=== PATIENT | male | born 1930 | race Caucasian/White ===

== ENCOUNTER 2016-06-19 03:37 | Emergency (ER) | payer OTHER ==
--- NOTE | 2016-06-19 03:42 | PDOC ---
History of Present Illness - General History Source: Patient, Old Records - History of Present Illness Initial Comments: 06/19/16 04:06 The patient is an 86 year old female with a significant past medical history of HTN, HLD, diverticulitis, gallbladder stones, stents x2 2009 who is arrived to the Emergency Department via EMS with complaints of chest pain since few hours ago. Pt states that he started to experience a sharp chest pain on his way to bed tonight. As per EMS, pt was given 2 Nitrile and 4 Aspirin in the ambulance. He denies fever, chills, cough, SOB, abdominal pain, nausea, vomiting, diarrhea , headache, dizziness. PSH:total hip replacement ALL: penicillins, gluten PCP: Dr. Gary Craven Nurse Practitioner: Dr. 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 2009) Cholecystectomy: No Lung Surgery: No Neurologic Surgery: No Orthopedic Surgery: No - Immunization History Immunization Up to Date: Yes - Psycho/Social/Smoking Cessation Hx Anxiety: No Suicidal Ideation: No Smoking Status: No Smoking History: Never smoked Have you smoked in the past 12 months: No Number of Cigarettes Smoked Daily: 0 Hx Alcohol Use: No Drug/Substance Use Hx: No Substance Use Type: None Hx Substance Use Treatment: No <Bebe Nascimento - Last Filed: 06/19/16 06:42> - Past Medical History Allergies/Adverse Reactions: Allergies Allergy/AdvReac Type Severity Reaction Status Date / Time Penicillins Allergy Severe anaphylaxis Verified 06/19/16 03:48 gluten AdvReac Intermediate CELIAC Verified 06/19/16 03:48 Home Medications: Ambulatory Orders Clonazepam [Klonopin -] 1 mg PO TID 08/11/15 Acetaminophen [Tylenol .Regular Strength -] 650 mg PO Q6H PRN #0 tablet Aspirin Coated [Ecotrin -] 81 mg PO DAILY #0 tablet.ec 02/29/16 Atorvastatin Ca [Lipitor] 10 mg PO HS #0 tablet 02/29/16 Nitroglycerin Sublingual [Nitrostat -] 0.4 mg SL Q5M PRN #0 tab 02/29/16 Amlodipine Besylate [Norvasc -] 2.5 mg PO DAILY 06/19/16 Citalopram Hydrobromide [Celexa -] 20 mg PO DAILY 06/19/16 Meclizine HCl [Antivert -] 12.5 mg PO BID PRN 06/19/16 Valsartan [Diovan] 160 mg PO DAILY 06/19/16 Review of Systems - Review of Systems Able to Perform ROS?: Yes Comments:: 06/19/16 04:10 GENERAL/CONSTITUTIONAL: No: fever, chills, weakness, loss of appetite. HEAD, EYES, EARS, NOSE AND THROAT: No: change in vision, ear pain, discharge, sore throat, throat swelling. CARDIOVASCULAR:Yes: chest pain No: lightheadedness, palpitations, syncope RESPIRATORY: No: cough, shortness of breath, wheezing, hemoptysis, stridor. GASTROINTESTINAL: No: nausea, vomiting, abdominal cramping, diarrhea, rectal bleeding, constipation. GENITOURINARY: No: dysuria, hematuria, frequency, urgency, flank pain. MUSCULOSKELETAL: No: back pain, neck pain, joint pain, muscle swelling or pain SKIN AND BREASTS: No: lesions, pallor, rash or easy bruising. NEUROLOGIC: No: headache, vertigo, paresthesias, weakness ENDOCRINE: No: unexplained weight gain or loss HEMATOLOGIC/LYMPHATIC: No: anemia, easy bleeding, swelling nodes All Other Systems: Reviewed and Negative <Yecenia Boyer - Last Filed: 06/19/16 04:36> *Physical Exam - Vital Signs Last Vital Signs Temp Pulse Resp BP Pulse Ox 97.8 F 80 18 124/83 99 06/19/16 03:45 06/19/16 03:52 06/19/16 03:52 06/19/16 03:52 06/19/16 03:52 - Physical Exam Comments: 06/19/16 04:11 GENERAL: The patient is in no acute distress. HEAD: Normal with no signs of trauma. EYES: PERRLA, EOMI, sclera anicteric, conjunctiva clear. ENT: Ears normal, nares patent, oropharynx clear without exudates. Moist mucous membranes. NECK: Normal range of motion, supple without lymphadenopathy, JVD, or masses. LUNGS: Breath sounds equal, clear to auscultation bilaterally. No wheezes, and no crackles. HEART:Regular rate and rhythm, normal S1 and S2 without murmur, rub or gallop. ABDOMEN: Soft, nontender, normoactive bowel sounds. No guarding, no rebound. EXTREMITIES:+bilateral lower extremities pitting edema. Normal range of motion. No clubbing or cyanosis. No erythema, or tenderness. NEUROLOGICAL: Cranial nerves II through XII grossly intact. Normal speech. No focal neurological deficits. MUSCULOSKELETAL: Back non-tender to palpation, no CVA tenderness SKIN: Warm, Dry, normal turgor, no rashes or lesions noted. <Yecenia Boyer - Last Filed: 06/19/16 04:36> ED Treatment Course - LABORATORY CBC & Chemistry Diagram: 06/19/16 04:15 06/19/16 04:15 <Yecenia Boyer - Last Filed: 06/19/16 04:36> - LABORATORY CBC & Chemistry Diagram: 06/19/16 04:15 06/19/16 04:50 <Bebe Nascimento - Last Filed: 06/19/16 06:42> Medical Decision Making - Medical Decision Making 06/19/16 06:38 Pt comes with chest pain that is muscular, as he twisted forcefully when he lost his balance while attempting to get on his bed. He twisted himself in an effort not to slip, and he got a spasm in the middle of his chest. No SOB and no other complaints. He called 911, who brought him to the hospital. His EKG is unchanged. He has normal labs/cardiac enzymes and his exam is normal. He was treated with NSAIDs and benadryl for it's muscle relaxin properties. He is feeling better and he will be discharged. He understands that he should return if he feels worse or if the pain doesn't remit. <Bebe Nascimento - Last Filed: 06/19/16 06:42> *DC/Admit/Observation/Transfer - Attestations Scribe Attestion: 06/19/16 04:12 Documentation prepared by Yecenia Boyer, acting as medical lab assistant for Bebe Nascimento MD. <Yecenia Boyer - Last Filed: 06/19/16 04:36> - Discharge Dispostion Admit: No <Bebe Nascimento - Last Filed: 06/19/16 06:42> Diagnosis at time of Disposition: Muscular chest pain - Discharge Dispostion Disposition: HOME Condition at time of disposition: Stable - Referrals Referrals: Gary Chandler [Primary Care Provider] - - Patient Instructions Printed Discharge Instructions: DI for Atypical Chest Pain, DI for Muscle Strain
[2016-06-19 03:48] VITALS: TEMP 97.8; BMI 30.1
[2016-06-19] MEDS ORDERED: KETOROLAC TROMETHAMINE 30 MG/1 ML VIAL IVPUSH ONE (03:59)
[2016-06-19] MEDS ORDERED: KETOROLAC TROMETHAMINE 30 MG/1 ML VIAL ONE (04:21)
[2016-06-19 04:26] LABS: BASOPHIL 2.3 % (0-2.0); EOSINOPHIL 5.1 % (0-4.5); MCH 30.5 pg (25.7-33.7); MCHC 33.8 g/dl (32.0-35.9); MEAN CELL VOLUME 90.1 fl (80-96); MEAN PLT VOLUME 6.8 fl (7.5-11.1); NEUTROPHILS 65.3 % (42.8-82.8); PLATELET COUNT 169 K/MM3 (134-434); RDW 13.8 % (11.9-15.9); WHITE BLOOD COUNT 4.5 K/mm3 (4.0-10.0)
[2016-06-19 04:37] LABS: INR 1.05 (0.82-1.09); PROTHROMBIN TIME (PATIENT) 11.6 SEC (9.98-11.88)
[2016-06-19 05:36] LABS: ALBUMIN 3.3 g/dl (3.4-5.0); ALK PHOS 109 U/L (45-117); ANION GAP 8 (8-16); BILIRUBIN,TOTAL 0.9 mg/dL (0.2-1.0); CALCIUM 7.5 mg/dL (8.5-10.1); CO2 28 mmol/L (21-32); GLUCOSE,RANDOM 81 mg/dL (74-106); SGOT/AST 21 U/L (15-37); SGPT/ALT 25 U/L (12-78); TOT PROT 6.3 g/dl (6.4-8.2); TROPONIN I < 0.02 ng/ml (0.00-0.05)
[2016-06-19 06:01] VITALS: BP 160/80; PULSE 68
--- NOTE | 2016-06-19 23:24 | EKG ---
Test Reason : Blood Pressure : / mmHG Vent. Rate : 076 BPM Atrial Rate : 076 BPM P-R Int : 172 ms QRS Dur : 156 ms QT Int : 452 ms P-R-T Axes : 069 -69 -03 degrees QTc Int : 508 ms NORMAL SINUS RHYTHM RIGHT BUNDLE BRANCH BLOCK LEFT ANTERIOR FASCICULAR BLOCK BIFASCICULAR BLOCK MINIMAL VOLTAGE CRITERIA FOR LVH, MAY BE NORMAL VARIANT SEPTAL INFARCT , AGE UNDETERMINED ABNORMAL ECG WHEN COMPARED WITH ECG OF 28-FEB-2016 09:49, T WAVE VARIATION Confirmed by SHERIDAN MUNIZ MD ([id number]) on 06/19/2016 11:23:43 PM Referred By: Confirmed By:SHERIDAN MUNIZ MD
== END 2016-06-19 06:06 | disposition home or self-care (01) ==
LOC: JER 03:37
PROC: 3E0333Z Introduction of Anti-inflammatory into Peripheral Vein, Percutaneous Approach (ICD-10-PCS; principal; 2016-06-19)
PROC: 3E033GC Introduction of Other Therapeutic Substance into Peripheral Vein, Percutaneous Approach (ICD-10-PCS; 2016-06-19)
DX: R07.89 Other chest pain (principal); I10 Essential (primary) hypertension; E78.00 Pure hypercholesterolemia, unspecified; Z95.5 Presence of coronary angioplasty implant and graft
CPT/HCPCS: 36415; 80053; 82550; 84484; 85025; 85610; 93005; 93010; 96374; 96375; 99282-25

== ENCOUNTER 2017-01-20 05:04 | Day surgery (SDC) | payer OTHER ==
[2017-01-19 07:10] VITALS: BMI 33.3
[2017-01-20] MEDS ORDERED: LIDOCAINE HCL 1%, 10 MG/ML (20ML VIAL) ONE (14:41)
--- NOTE | 2017-01-20 15:05 | HP ---
History & Physical Update - History History: No Change - Physical Physical: No Change - Assessment Assessment: No Change - Plan Plan: No Change
[2017-01-20] MEDS ORDERED: ACETAMINOPHEN 1000 MG/100 ML VIAL (NON FORMULARY) IVPB ONE (15:06)
[2017-01-20] MEDS ORDERED: IBUPROFEN 800 MG/8 ML IJ IVPB PRN (15:06)
[2017-01-20] MEDS ORDERED: DEXTROSE 5%-0.45% SALINE 1,000 ML IV SCH (15:15)
[2017-01-20] MEDS ORDERED: LEVOFLOXACIN 500 MG IVPB 100 ML IVPB ONE (15:17)
[2017-01-20] MEDS ORDERED: LEVOFLOXACIN 500 MG PREMIX BAG IVPB ONE (15:18)
[2017-01-20] MEDS ORDERED: MIDAZOLAM HCL 2 MG/2 ML SINGLE DOSE VIAL ONE (15:20)
[2017-01-20] MEDS ORDERED: LIDOCAINE HCL 1%, 10 MG/ML (20ML VIAL) IJ ONE (15:24)
[2017-01-20] MEDS ORDERED: oxyCODONE HCL 5 MG TABLET PO PRN (16:10)
[2017-01-20] MEDS ORDERED: PROMETHAZINE HCL 25 MG/1 ML VIAL IVPUSH PRN (16:10)
[2017-01-20] MEDS ORDERED: ONDANSETRON 4 MG/2 ML VIAL IVPUSH PRN (16:10)
[2017-01-20] MEDS ORDERED: LABETALOL HCL 5 MG/1 ML (100MG/20 ML VIAL) IVPUSH ONE (16:12)
[2017-01-20 17:26] VITALS: TEMP 98
[2017-01-20 19:03] VITALS: BP 137/78; PULSE 73
--- NOTE | 2017-01-21 08:05 | OP ---
DATE OF OPERATION: 01/20/2017 PREOPERATIVE DIAGNOSIS: Urinary urge incontinence. POSTOPERATIVE DIAGNOSIS: Urinary urge incontinence. PROCEDURE: InterStim implant, battery and lead on the left. SURGEON: Marcello Burns MD ANESTHESIA: Aline Chew MD PREOPERATIVE INDICATIONS: The patient is an 86-year-old male with severe urinary urge incontinence. He has failed multiple medications. He had a percutaneous nerve evaluation test done which showed a greater than 50% improvement in his urge incontinence. He elects for InterStim implant. DESCRIPTION OF OPERATION: Patient is brought to the OR, placed on the table in the prone position. All pressure points were protected. IV antibiotics and IV sedation were given. The back was prepped and draped sterilely. Timeout was performed. Using fluoroscopy, the S3 foramen identified bilaterally. Finder needles were passed into the S3 foramen bilaterally after the skin was infused with lidocaine. On the left side, the best response was seen with viviana and toe deflection at low amplitude. A wire guide was then placed through the needle. The tract was dilated, and a quadripolar lead was passed into the S3 foramen under fluoroscopic guidance. It was retested with good response at all leads. This lead was then tunneled underneath the skin to the left side where a battery pocket was made. This was connected to the battery. The battery was placed into the pocket. Wounds were closed in 2 layers using 3-0 Vicryl and 4-0 Monocryl. Wounds were dressed. Patient was woken up. [place] [id number]
== END 2017-01-20 18:30 | disposition home or self-care (01) ==
LOC: JASU-SURG 05:04
PROVIDERS: ATTEND Urology
PROC: 01HY0MZ Insertion of Neurostimulator Lead into Peripheral Nerve, Open Approach (ICD-10-PCS; 2017-01-20)
PROC: 0JH70BZ Insertion of Single Array Stimulator Generator into Back Subcutaneous Tissue and Fascia, Open Approach (ICD-10-PCS; principal; 2017-01-20 14:30)
DX: N39.41 Urge incontinence (principal)
CPT/HCPCS: 64581; 64590; C1767; C1778; 76000-TC; 94760

== ENCOUNTER 2017-02-22 09:30 | Day surgery (SDC) | payer OTHER ==
[2017-02-21 12:24] VITALS: BMI 33.3
[2017-02-22] MEDS ORDERED: LIDOCAINE HCL 1%, 10 MG/ML (20ML VIAL) INF ONE (11:08)
[2017-02-22] MEDS ORDERED: IBUPROFEN 800 MG/8 ML IJ IVPB PRN (12:17)
--- NOTE | 2017-02-22 12:17 | HP ---
History & Physical Update - History History: No Change - Physical Physical: No Change - Assessment Assessment: No Change - Plan Plan: No Change
[2017-02-22] MEDS ORDERED: ACETAMINOPHEN 1000 MG/100 ML VIAL (NON FORMULARY) IVPB ONE ×2 (12:18→14:20)
[2017-02-22] MEDS ORDERED: DEXTROSE 5%-0.45% SALINE 1,000 ML IV SCH (12:30)
[2017-02-22] MEDS ORDERED: MIDAZOLAM HCL 2 MG/2 ML SINGLE DOSE VIAL ONE (12:52)
[2017-02-22] MEDS ORDERED: PROPOFOL 20 ML ONE ×2 (12:52→13:50)
[2017-02-22] MEDS ORDERED: LEVOFLOXACIN 500 MG PREMIX BAG IVPB ONE (12:55)
[2017-02-22] MEDS ORDERED: LIDOCAINE HCL 1%, 10 MG/ML (20ML VIAL) ONE (12:58)
[2017-02-22] MEDS ORDERED: ACETAMINOPHEN INJECTION 100 ML IVPB ONE (14:36)
--- NOTE | 2017-02-22 15:36 | OP ---
DATE OF OPERATION: 02/22/2017 PREOPERATIVE DIAGNOSIS: Urge urinary incontinence. POSTOPERATIVE DIAGNOSIS: Urge urinary incontinence. PROCEDURE: Battery and lead replacement of InterStim. SURGEON: Marcello Burns MD ESTIMATED BLOOD LOSS: Minimal. PREOPERATIVE INDICATION: The patient is an 86-year-old male with a history of bad urgency, frequency and urinary incontinence. He had an InterStim placed recently. However, the lead has migrated and the battery site was very painful to him. He comes to the OR for replacement of the device. OPERATION: The patient was brought to the OR and placed on the table in prone position. All pressure points were protected. He was given IV sedation, local anesthesia, and IV antibiotics. Incision was made paramedian to the sacrum. The lead was identified and removed in total. The old battery site was also reopened and the battery was removed. Incisions were irrigated with bacitracin and water. The foramen were identified on the right and left side using fluoroscopy and wires were passed down on each side of the S3 foramen. Superior stimulation occurred on the left side with appropriate S3 response at low amplitude. The quadripolar lead was placed under Seldinger technique using fluoroscopy and then this was tunneled separately to the previous battery site. A new pocket was then made that would better hold the battery in place, as previously the battery had migrated and changed its angle causing a lot of pain. Once the new battery was placed in the new pocket, the pocket was reinforced and then closed with 3-0 Vicryl. Separately, the entire pocket was closed with 3-0 Vicryl and 4-0 Monocryl. The sutures were similarly closed in two layers. The wounds were dressed. The patient was woken up. The patient's impedance was normal. [place] [id number]
[2017-02-22 15:51] VITALS: TEMP 97.6
[2017-02-22] MEDS ORDERED: ONDANSETRON 4 MG/2 ML VIAL IVPUSH PRN (18:04)
[2017-02-22] MEDS ORDERED: LACTATED RINGERS SOLUTION 1,000 ML IV SCH (18:15)
[2017-02-22 18:54] VITALS: BP 149/77; PULSE 63
--- NOTE | 2017-02-24 13:36 | PATH ---
Surgical Pathology Report Patient Name: CONSUELO LOUIE Med. Rec. #: [id number] /Age/Gender: 1930 (Age: 86) / M Account: [id number] Location: [facility] SURGICAL Taken: 02/22/2017 Received: 02/23/2017 Reported: 02/24/2017 Physicians: Marcello Burns M.D. Specimen(s) Received LEAD AND BATTERY REMOVED Clinical History Urge incontinence Final Diagnosis INTERSTIM LEAD AND BATTERY, REMOVAL: INTERIOR DESIGN CONSULTANT (GROSS EXAM). Electronically Signed Dannie Sebastian M.D. Gross Description Received dry labeled "removed lead and battery InterStim" and is a 5.0 x 4.4 x 0.8 cm metallic and plastic medical equipment sales designated [employer] InterStim 2. Also present is a 24 cm long x 0.1 cm in diameter portion of metallic wire with plastic coating. This is for gross identification only. [facility]/02/23/2017 [facility]/02/23/2017
== END 2017-02-22 17:00 | disposition home or self-care (01) ==
LOC: JASU-SURG 09:30
PROVIDERS: ATTEND Urology
PROC: 01HY0MZ Insertion of Neurostimulator Lead into Peripheral Nerve, Open Approach (ICD-10-PCS; 2017-02-22)
PROC: 0JH70BZ Insertion of Single Array Stimulator Generator into Back Subcutaneous Tissue and Fascia, Open Approach (ICD-10-PCS; principal; 2017-02-22 11:30)
DX: N39.41 Urge incontinence (principal); R35.0 Frequency of micturition
CPT/HCPCS: 64581; 64590; C1767; C1778; 76000-TC; 88300-TC; 94760

== ENCOUNTER 2017-07-17 19:47 | Emergency (ER) | payer OTHER ==
--- NOTE | 2017-07-17 20:08 | PDOC ---
Rapid Medical Evaluation Time Seen by Provider: 07/17/17 20:04 Medical Evaluation: Allergies Allergy/AdvReac Type Severity Reaction Status Date / Time Penicillins Allergy Severe anaphylaxis Verified 02/21/17 12:29 gluten AdvReac Intermediate CELIAC Verified 02/21/17 12:29 07/17/17 20:04 I have performed a brief in-person evaluation of this patient. The patient presents with a chief complaint of: hx of fractured foot, tripped on boot and fell , hit left side of head "really hard", left shoulder pain, dizzy since he fell down, denies LOC/N/V, denies neck pain, family denies AMS, change in speech, PCP Jack Pertinent physical exam findings: well appearing, no focal neuro deficits I have ordered the following: labs, head CT, shoulder x-ray, ekg The patient will proceed to the ED for further evaluation. Discharge Disposition - Diagnosis Fall - Referrals - Patient Instructions - Post Discharge Activity
[2017-07-17 20:14] VITALS: BP 152/72; PULSE 68; TEMP 97.4; BMI 30.7
[2017-07-17 20:41] LABS: BASO % 0.7 % (0-2.0); EOS % 3.3 % (0-4.5); LYMPH % 15.2 % (8-40); MCHC 33.3 g/dl (32.0-35.9); MEAN CELL VOLUME 90.1 fl (80-96); MONO % 18.4 % (3.8-10.2); NEUT % 62.4 % (42.8-82.8); PLATELET COUNT 207 K/MM3 (134-434); RBC 3.99 M/mm3 (4.00-5.60); RDW 14.5 % (11.9-15.9); WHITE BLOOD COUNT 3.7 K/mm3 (4.0-10.0)
--- NOTE | 2017-07-17 20:44 | PDOC ---
History of Present Illness - General Chief Complaint: Injury Stated Complaint: FALL INJURY Time Seen by Provider: 07/17/17 20:04 - History of Present Illness Initial Comments: 07/17/17 22:06 The patient is an 87 year old male with a history of HTN, HLD, DM, Dementia who presents for evaluation following a fall. The patient reports that he recently fractured his left foot and has been wearing a boot on his foot. He states that he was walking and tripped on the boot and struck his head on the ground. He is reporting headache, dizziness, and left shoulder pain prompting his presentation to the ED for evaluation. He denies fevers, chills, SOB, chest pain, nausea, vomiting, abdominal pain, or changes with urination or bowel movements. Past History - Past Medical History Allergies/Adverse Reactions: Allergies Allergy/AdvReac Type Severity Reaction Status Date / Time Penicillins Allergy Severe anaphylaxis Verified 02/21/17 12:29 gluten AdvReac Intermediate CELIAC Verified 02/21/17 12:29 Home Medications: Ambulatory Orders clonazePAM [Klonopin -] 1 mg PO TID 08/11/15 Acetaminophen [Tylenol .Regular Strength -] 650 mg PO Q6H PRN #0 tablet Nitroglycerin Sublingual [Nitrostat -] 0.4 mg SL Q5M PRN #0 tab 02/29/16 Amlodipine Besylate [Norvasc -] 2.5 mg PO DAILY 06/19/16 Meclizine HCl [Antivert -] 12.5 mg PO BID PRN 06/19/16 Valsartan [Diovan] 160 mg PO DAILY 06/19/16 Famotidine 40 mg PO HS 01/17/17 Furosemide 20 mg PO DAILY 01/17/17 Escitalopram Oxalate [Lexapro -] 20 mg PO DAILY 02/22/17 Pravastatin Sodium 20 mg PO HS 02/22/17 levoFLOXacin [Levaquin -] 500 mg PO DAILY #7 tablet 02/22/17 Anemia: Yes Asthma: No Cancer: Yes (PROSTATE-SEED IMPLANT) Cardiac Disorders: (OPENED ARTERY 10YRS AGO) 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) COPD: No CHF: No 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) Diabetes: Yes GI Disorders: Yes (CELIAC, REFLUX) Disorders: No HTN: Yes Hypercholesterolemia: Yes Liver Disease: No Seizures: No Thyroid Disease: No - Surgical History Abdominal Surgery: No Appendectomy: No Cardiac Surgery: (STENT X3 10YRS AGO) Cholecystectomy: No Lung Surgery: No Neurologic Surgery: No Orthopedic Surgery: Yes (TITANIUM (RIGHT HIP FRACTURED)) - Immunization History Immunization Up to Date: Yes - Suicide/Smoking/Psychosocial Hx Smoking Status: No Smoking History: Never smoked Have you smoked in the past 12 months: No Number of Cigarettes Smoked Daily: 0 Information on smoking cessation initiated: No Hx Alcohol Use: No Drug/Substance Use Hx: No Substance Use Type: None Hx Substance Use Treatment: No Review of Systems - Review of Systems Comments:: 07/17/17 22:15 Constitutional: No fevers, chills, fatigue, malaise HEENT: No Rhinorrhea, nasal congestion, visual changes Cardiovascular: No chest pain, syncope, palpitations, lightheadedness Respiratory: No Cough, SOB, Hemoptysis, Gastrointestinal: No Abdominal pain, Nausea, Vomiting, Constipation, Diarrhea, Melena Genitourinary: No Dysuria, Frequency, Urgency, Hesitancy, Hematuria, Flank pain Musculoskeletal: Left shoulder pain. No Myalgia, arthralgia Skin: No rashes, itching, bruising, pallor Neurologic: Headache, Dizziness. No Numbness, Weakness, or Tingling Psychiatric: No Hallucinations. No SI or HI *Physical Exam - Vital Signs Last Vital Signs Temp Pulse Resp BP Pulse Ox 97.4 F L 68 20 152/72 97 07/17/17 20:10 07/17/17 20:10 07/17/17 20:10 07/17/17 20:10 07/17/17 20:10 - Physical Exam Comments: 07/17/17 22:16 General Appearance: Nourished. No Apparent Distress HEENT: EOMI, RON. No Pharyngeal Erythema, Tonsillar Exudate, Tonsillar Erythema Neck: No Cervical Lymphadenopathy Respiratory/Chest: Lungs Clear, Normal Breath Sounds. No Crackles, Rales, Rhonchi, Wheezing Cardiovascular: Regular Rhythm, Regular Rate. No Murmur, Gallops, Rubs Gastrointestinal/Abdominal: Normal Bowel Sounds, Soft. No Guarding, Rebound, Tenderness Musculoskeletal: Limited range of motion of the left shoulder secondary to pain. No CVA Tenderness Extremity: Normal Capillary Refill Integumentary: Normal Color, Dry, Warm Neurologic: electrician helper II-XII NML intact, Fully Oriented, Alert, Normal Mood/Affect, Normal Response, Motor Strength 5/5. ED Treatment Course - LABORATORY CBC & Chemistry Diagram: 07/17/17 20:30 07/17/17 22:20 Medical Decision Making - Medical Decision Making 07/17/17 22:18 The patient is an 87 year old male with a history of HTN, HLD, DM, Dementia who presents for evaluation following a fall. Given the patient's fall, we will obtain a cbc, cmp, troponin, ekg, head ct, and plain films of the patient's shoulder to further evaluate for any fractures, intracranial process, or other etiologies. We will continue to monitor and reassess. 07/17/17 23:11 CBC, cmp, troponin are unremarkable. Head ct is unremarkable as read by our radiologist. Plain films do not demonstrate any acute fracture as preliminarily read by the ER physician. We are comfortable discharging the patient home at this time with primary care provider follow up. We discussed the results and the plan with the patient who voiced understanding and is agreeable. *DC/Admit/Observation/Transfer Diagnosis at time of Disposition: Fall Qualifiers: Encounter type: initial encounter Qualified Code(s): W19.XXXA - Unspecified fall, initial encounter - Discharge Dispostion Disposition: HOME Condition at time of disposition: Good Admit: No - Referrals Referrals: Soo Santiago MD [Primary Care Provider] - - Patient Instructions Printed Discharge Instructions: How to Prevent Falls, DI for Headache Additional Instructions: Please return to the ER if you experience concerning or worsening symptoms including worsening headache, vomiting, or difficulty breathing. Your lab results and imaging were normal here in the ER. It is important that you call to schedule a follow up appointment with your primary care provider within 3-4 days to discuss your ER visit. - Post Discharge Activity
[2017-07-17 21:13] LABS: INR 1.04 (0.82-1.09); PROTHROMBIN TIME (PATIENT) 11.7 SEC (9.98-11.88)
--- NOTE | 2017-07-17 21:16 | PDOC ---
Attending Attestation - Resident Resident Name: Jamison Taveras - ED Attending Attestation I have performed the following: I have examined & evaluated the patient, The case was reviewed & discussed with the resident, I agree w/resident's findings & plan, Exceptions are as noted - HPI HPI: 07/17/17 21:11 87 yo male BIAB from eafter having a mechanical fall. He is wearing an orhtopedic boot on his already fractured left foot 07/17/17 22:06 - Physicial Exam PE: 07/17/17 22:06 a;ert 87 yo male c/o mechanical fall over his left foot head no scalp laceration but has soreness in left parietal area neck supple no cervical vertebral tenderness lungs cta b/l cvs [id number] no flank pain abd rlq pain , small 3 cm ecchymosis musculoskeletal pain L5 vertebral pain to palpation skin no lacerations neuro ax0x3,moving all extremities - Medical Decision Making 07/17/17 23:00 ct scan head no bleed,no fracture
[2017-07-17 22:57] LABS: ALBUMIN 3.6 g/dl (3.4-5.0); ANION GAP 9 (8-16); BILIRUBIN,TOTAL 1.1 mg/dL (0.2-1.0); BLOOD UREA NITROGEN 12 mg/dL (7-18); CALCIUM 8.5 mg/dL (8.5-10.1); CHLORIDE 97 mmol/L (98-107); CO2 31 mmol/L (21-32); GLUCOSE,RANDOM 104 mg/dL (74-106); SGOT/AST 28 U/L (15-37); SGPT/ALT 31 U/L (12-78); SODIUM 137 mmol/L (136-145); TOT PROT 7.2 g/dl (6.4-8.2)
[2017-07-17 23:00] LABS: ALK PHOS 120 U/L (45-117)
--- NOTE | 2017-07-18 08:54 | EKG ---
Test Reason : Blood Pressure : / mmHG Vent. Rate : 068 BPM Atrial Rate : 068 BPM P-R Int : 196 ms QRS Dur : 152 ms QT Int : 470 ms P-R-T Axes : 048 -66 -15 degrees QTc Int : 499 ms POOR DATA QUALITY, INTERPRETATION MAY BE ADVERSELY AFFECTED NORMAL SINUS RHYTHM RIGHT BUNDLE BRANCH BLOCK LEFT ANTERIOR FASCICULAR BLOCK BIFASCICULAR BLOCK MINIMAL VOLTAGE CRITERIA FOR LVH, MAY BE NORMAL VARIANT SEPTAL INFARCT (CITED ON OR BEFORE 19-JUN-2016) ABNORMAL ECG WHEN COMPARED WITH ECG OF 19-JUN-2016 03:48, NO SIGNIFICANT CHANGE WAS FOUND Confirmed by Zhen Gonzalez MD ([id number]) on 07/18/2017 8:53:46 AM Referred By: Confirmed By:Zhen Gonzalez MD
== END 2017-07-18 00:14 | disposition home or self-care (01) ==
LOC: JER 19:47
DX: W01.0XXA Fall on same level from slipping, tripping and stumbling without subsequent striking against object, initial encounter (principal); Y93.89 Activity, other specified; Y92.89 Other specified places as the place of occurrence of the external cause; Y99.9 Unspecified external cause status; I25.10 Atherosclerotic heart disease of native coronary artery without angina pectoris; I10 Essential (primary) hypertension; Z95.1 Presence of aortocoronary bypass graft; Z95.5 Presence of coronary angioplasty implant and graft; E78.00 Pure hypercholesterolemia, unspecified; E11.9 Type 2 diabetes mellitus without complications; F03.90 Unspecified dementia, unspecified severity, without behavioral disturbance, psychotic disturbance, mood disturbance, and anxiety; I69.851 Hemiplegia and hemiparesis following other cerebrovascular disease affecting right dominant side; Z85.46 Personal history of malignant neoplasm of prostate
CPT/HCPCS: 36415; 70450-TC; 73030-TC-LT-FY; 80053; 82550; 82553; 84484; 85025; 85610; 93005; 93010; 99281-25

== ENCOUNTER 2018-01-01 11:27 | Emergency (ER) | payer OTHER ==
[2018-01-01 11:39] VITALS: BMI 33.3
--- NOTE | 2018-01-01 12:27 | PDOC ---
Attending Attestation - HPI HPI: 01/01/18 13:23 The patient is a 87 year old male, with a significant past medical history of HTN, HLD, DM, Dementia, who presents to the emergency department with, abnormal urine results. He reports that his PCP, Dr. Chandler, advised him to report to the ED following urine test that depicted a UTI, for urine cultures and IV antibiotics. The patient reports his UTI was an incidental finding after a routine blood and urine test. He denies any symptoms while in the ED. He denies any recent fevers, chills, headache or dizziness. He denies any recent nausea, vomit, diarrhea or constipation. He denies any recent chest pain or shortness of breath. He denies any recent dysuria, frequency, urgency or hematuria. Allergies: Penicillins, gluten Past surgical history: Cardiac stents 06/2007, total right hip replacement/2016. Social History: Nonsmoker. Denies EtOH use and recreational drug use. Primary Care Physician: Dr. Chandler - Physicial Exam PE: 01/01/18 15:39 GENERAL: The patient is in no acute distress. HEAD: Normal with no signs of trauma. NECK: Normal range of motion, supple without lymphadenopathy, JVD, or masses. LUNGS: Breath sounds equal, clear to auscultation bilaterally. No wheezes, and no crackles. HEART:Regular rate and rhythm, normal S1 and S2 without murmur, rub or gallop. ABDOMEN: Soft, nontender, normoactive bowel sounds. No guarding, no rebound. No masses palpable. EXTREMITIES: Normal range of motion, no edema. No clubbing or cyanosis. No erythema, or tenderness. NEUROLOGICAL: Cranial nerves II through XII grossly intact. Normal speech. No focal neurological deficits. MUSCULOSKELETAL: Back non-tender to palpation, no CVA tenderness SKIN: Warm, Dry, normal turgor, no rashes or lesions noted. <Bhupinder Anderson - Last Filed: 01/01/18 15:38> - Resident Resident Name: Mikey Crenshaw - ED Attending Attestation I have performed the following: I have examined & evaluated the patient, The case was reviewed & discussed with the resident, I agree w/resident's findings & plan, Exceptions are as noted - Medical Decision Making 01/01/18 14:28 87 yo M presenting to the ER upon the recommendation of his PMD who has done surveillance UAs every 3 months Pt had a UA last week (pt has no symptoms) Urine culture was (+) >100,000 ESBL Pt has no flank pain, no fevers or chills, no dysuria, no fevers Laboratory Tests 01/01/18 01/01/18 01/01/18 13:00 13:09 13:09 WBC 4.2 Hgb 12.0 Hct 36.0 Plt Count 188 Sodium 134 L Potassium 4.3 Chloride 99 Carbon Dioxide 30 BUN 15 Creatinine 1.1 Random Glucose 85 Urine Blood Negative Urine Nitrite Negative Ur Leukocyte Esterase Negative 01/01/18 16:02 Pt PMD requesting admission Case reviewed with Dr Salter, no indication for admission Case reviewed with Dr Das Will give Tobra Will discharge to home Pt to follow up with PMD Urine cultures sent and are pending <Ivett Collier - Last Filed: 01/01/18 16:04> Attestations - Attestations 01/01/18 13:23 Documentation prepared by Bhupinder Anderson, acting as medical laboratory assistant for Ivett Collier MD. <Bhupinder Anderson - Last Filed: 01/01/18 15:38>
--- NOTE | 2018-01-01 12:58 | PDOC ---
History of Present Illness - General Chief Complaint: Revisit, Lab Variance Stated Complaint: EVALUATION (PCP SENT) Time Seen by Provider: 01/01/18 12:26 - History of Present Illness Initial Comments: The patient is an 87M with a history of prostate cancer and urinary retention s/ p bladder stimulator implantation who presents for ESBL UTI, sent in by Dr. Chandler. The patient was found to have >100,000 CFU Enterobacter aerogenes on 12/28. On presentation, he denies any complaints including dysuria, hematuria, discharge, fever, or flank pain. He only reports that he has had a scrotal fungus for the past six years on topical fungus. 01/01/18 13:39 Past History - Past Medical History Allergies/Adverse Reactions: Allergies Allergy/AdvReac Type Severity Reaction Status Date / Time Penicillins Allergy Severe anaphylaxis Verified 01/01/18 11:37 gluten AdvReac Intermediate CELIAC Verified 01/01/18 11:37 Home Medications: Ambulatory Orders clonazePAM [Klonopin -] 1 mg PO TID 08/11/15 Amlodipine Besylate [Norvasc -] 2.5 mg PO DAILY 06/19/16 Famotidine 40 mg PO HS 01/17/17 Furosemide 20 mg PO DAILY 01/17/17 Escitalopram Oxalate [Lexapro -] 20 mg PO DAILY 02/22/17 Pravastatin Sodium 20 mg PO HS 02/22/17 Anemia: Yes Asthma: No Cancer: Yes (PROSTATE-SEED IMPLANT) Cardiac Disorders: (OPENED ARTERY 10YRS AGO) 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) COPD: No CHF: No 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) Diabetes: Yes GI Disorders: Yes (CELIAC, REFLUX) Disorders: No HTN: Yes Hypercholesterolemia: Yes Liver Disease: No Seizures: No Thyroid Disease: No - Surgical History Abdominal Surgery: No Appendectomy: No Cardiac Surgery: (STENT X3 10YRS AGO) Cholecystectomy: No Lung Surgery: No Neurologic Surgery: No Orthopedic Surgery: Yes (TITANIUM (RIGHT HIP FRACTURED)) - Immunization History Immunization Up to Date: Yes - Suicide/Smoking/Psychosocial Hx Smoking Status: No Smoking History: Never smoked Have you smoked in the past 12 months: No Number of Cigarettes Smoked Daily: 0 Hx Alcohol Use: No Drug/Substance Use Hx: No Substance Use Type: None Hx Substance Use Treatment: No Review of Systems - Review of Systems Able to Perform ROS?: Yes Comments:: GENERAL/CONSTITUTIONAL: No fever or chills. No weakness HEAD, EYES, EARS, NOSE AND THROAT: No change in vision. No ear pain or discharge. No sore throat CARDIOVASCULAR: No chest pain or shortness of breath RESPIRATORY: No cough, wheezing, or hemoptysis GASTROINTESTINAL: No nausea, vomiting, diarrhea or constipation GENITOURINARY: No dysuria, frequency, or change in urination MUSCULOSKELETAL: No joint or muscle swelling or pain. No neck or back pain SKIN: +chronic scrotal fungal infection (6yr) NEUROLOGIC: No headache, vertigo, loss of consciousness, or change in strength/ sensation ENDOCRINE: No increased thirst. No abnormal weight change HEMATOLOGIC/LYMPHATIC: No anemia, easy bleeding, or history of blood clots ALLERGIC/IMMUNOLOGIC: No hives or skin allergy 01/01/18 12:57 Is the patient limited Bahamian proficient: No *Physical Exam - Vital Signs Last Vital Signs Temp Pulse Resp BP Pulse Ox 98.6 F 83 18 145/72 96 01/01/18 11:37 01/01/18 11:37 01/01/18 11:37 01/01/18 11:37 01/01/18 11:37 - Physical Exam Comments: GENERAL: Awake, alert, and fully oriented, in no acute distress HEAD: No signs of trauma, normocephalic, atraumatic EYES: PERRLA, EOMI, sclera anicteric, conjunctiva clear ENT: Hearing grossly normal, nares patent, oropharynx clear without exudates. Moist mucosa NECK: Normal ROM, supple, no lymphadenopathy LUNGS: No distress, speaks full sentences, clear to auscultation bilaterally HEART: Regular rate and rhythm, normal S1 and S2, no murmurs appreciated, peripheral pulses normal and equal bilaterally ABDOMEN: Soft, nontender, normoactive bowel sounds. No guarding, no rebound EXTREMITIES : Normal inspection, Normal range of motion, no edema. No clubbing or cyanosis NEUROLOGICAL: Cranial nerves II through XII grossly intact. Normal speech, walks with cane, no focal sensorimotor deficits SKIN: No scrotal fungal lesions, erythema, or excoriations noted 01/01/18 12:57 ED Treatment Course - LABORATORY CBC & Chemistry Diagram: 01/01/18 13:09 01/01/18 13:00 Medical Decision Making - Medical Decision Making The patient is an 87M who presents for evaluation of asymptomatic bactiuria Sensitivities received from Dr. Chandler Patient with anaphylactic allergy to PCN ED Course BMP, CBC, UA, UCx 01/01/18 12:53 UA negative for UTI. Given patient has recent UCx from PCP +for E. aerogenes 01/01/18 14:34 Consult ID for asymptomatic bactiuria Will give Tobramycin 80mg IV once based on sensitivities from outside office and ID recommendation Plan for discharge and f/u iwth PCP within 1-3 days The patient understands and agrees with the plan of care as outlined above and that questions have been answered to his apparent satisfaction. The patient was instructed to follow up with their primary care physician, was given return precautions, and voiced understanding. 01/01/18 15:43 *DC/Admit/Observation/Transfer Diagnosis at time of Disposition: UTI (urinary tract infection) Qualifiers: Urinary tract infection type: site unspecified Hematuria presence: without hematuria Qualified Code(s): N39.0 - Urinary tract infection, site not specified - Discharge Dispostion Disposition: HOME Condition at time of disposition: Stable Decision to Admit order: No - Referrals Referrals: Gary Chandler [Primary Care Provider] - - Patient Instructions Printed Discharge Instructions: DI for Urinary Tract Infection (UTI) Additional Instructions: You were seen in the Emergency Department today for a positive Urine Culture. You were treated with one dose of IV antibiotics. You should follow up with Dr. Chandler tomorrow or the next day. Review the handouts provided at discharge. Return to the Emergency Department if you develop fevers/chills, abdominal pain , pain with urination, or any new concerning symptoms. - Post Discharge Activity
[2018-01-01 13:25] LABS: URINE APPEARANCE CLEAR; URINE BILIRUBIN NEGATIVE (<2.0 mg/dL); URINE COLOR YELLOW; URINE GLUCOSE (UA) NEGATIVE (NEGATIVE); URINE KETONE NEGATIVE (NEGATIVE); URINE LEUK ESTERASE NEGATIVE (NEGATIVE); URINE NITRITE NEGATIVE (NEGATIVE); URINE PROTEIN NEGATIVE (NEGATIVE); URINE UROBILINOGEN NEGATIVE mg/dL (0.2-1.0)
[2018-01-01 13:48] LABS: MCH 29.7 pg (25.7-33.7); MCHC 33.3 g/dl (32.0-35.9); MEAN CELL VOLUME 89.2 fl (80-96); MEAN PLT VOLUME 7.6 fl (7.5-11.1); PLATELET COUNT 188 K/MM3 (134-434); RBC 4.03 M/mm3 (4.00-5.60); RDW 14.6 % (11.9-15.9); WHITE BLOOD COUNT 4.2 K/mm3 (4.0-10.0)
[2018-01-01 14:20] LABS: ANION GAP 5 (8-16); BLOOD UREA NITROGEN 15 mg/dL (7-18); CALCIUM 8.8 mg/dL (8.5-10.1); CHLORIDE 99 mmol/L (98-107); CO2 30 mmol/L (21-32); CREATININE 1.1 mg/dL (0.7-1.3); GLUCOSE,RANDOM 85 mg/dL (74-106); POTASSIUM 4.3 mmol/L (3.5-5.1); SODIUM 134 mmol/L (136-145)
[2018-01-01] MEDS ORDERED: TOBRAMYCIN SULFATE 90 MG in SODIUM CHLORIDE 100 ML IVPB ONE (15:42)
[2018-01-01 17:23] VITALS: BP 137/75; PULSE 60; TEMP 97.7
== END 2018-01-01 17:51 | disposition home or self-care (01) ==
LOC: JER 11:27
DX: N39.0 Urinary tract infection, site not specified (principal); I10 Essential (primary) hypertension; E78.00 Pure hypercholesterolemia, unspecified; Z95.5 Presence of coronary angioplasty implant and graft; Z86.73 Personal history of transient ischemic attack (TIA), and cerebral infarction without residual deficits; F03.90 Unspecified dementia, unspecified severity, without behavioral disturbance, psychotic disturbance, mood disturbance, and anxiety
CPT/HCPCS: 36415; 80048; 81003; 85027; 87040; 87086; 99283-25